=== PATIENT | female | born 1965 | race Caucasian/White ===

== ENCOUNTER 2016-11-16 11:09 | Outpatient (CLI) | payer MEDICAID | END 2016-11-16 11:10 | disposition home or self-care (01) | DX: M17.12 Unilateral primary osteoarthritis, left knee (principal) ==

== ENCOUNTER 2017-06-09 08:32 | Outpatient (CLI) | payer MEDICAID ==
--- NOTE | 2017-06-09 11:36 | Ultrasound Report ---
PELVIC ULTRASOUND: 06/09/2017 CLINICAL INDICATION: Pelvic pain. TECHNIQUE: Transabdominal pelvic ultrasound performed for global evaluation. Transvaginal pelvic ul trasound performed for detailed evaluation. Real-time scanning performed and static images obtained. FINDINGS: The uterus is anteverted, measuring 12.8 x 8.5 x 7.4 cm. The endometrium measures 10 mm. An IUD is noted in the endometrial canal. Multiple leiomyomas are present. The largest, in the ant erior myometrium, measures 4.3 x 3.8 x 3.6 cm. A left lateral leiomyoma measures 4.6 x 3.7 x 3.1 cm, and a superior leiomyoma measures 2.9 x 2.6 x 2.4 cm. The right ovary measures 3.3 x 2.1 x 1.9 cm, and demonstrates a 1.4 cm follicle. The left ovary korina ures 3.3 x 3.2 x 4.1 cm, and contains a 2.4 x 2.3 x 3.2 cm follicle. No free fluid is present. IMPRESSION: IUD IN THE ENDOMETRIAL CANAL. MULTIPLE LEIOMYOMAS. BILATERAL OVARIAN FOLLICLES. JOB #: [id number] EXT JOB #:[id number]
== END 2017-06-09 08:33 | disposition home or self-care (01) ==
LOC: DI 08:32
PROVIDERS: ATTEND Nurse Practitioner Family
DX: D25.9 Leiomyoma of uterus, unspecified (principal); Z97.5 Presence of (intrauterine) contraceptive device
CPT/HCPCS: 76830; 76856

== ENCOUNTER 2017-08-02 08:00 | Outpatient (CLI) | payer MEDICAID | END 2017-08-02 08:01 | disposition home or self-care (01) | LOC: LAB.R 08:00 | PROVIDERS: ATTEND Obstetrics & Gynecology | DX: Z12.4 Encounter for screening for malignant neoplasm of cervix (principal) | CPT/HCPCS: 87491; 87591 ==

== ENCOUNTER 2017-08-20 08:55 | Outpatient (CLI) | payer MEDICAID ==
--- NOTE | 2017-08-20 17:05 | MRI Report ---
EXAM: MRI PELVIS WITHOUT CONTRAST EXAM DATE: 08/20/2017 10:00 AM. CLINICAL HISTORY: Low back pain radiating into the lower extremities. COMPARISON: CT 11/04/2015. TECHNIQUE: Multiplanar, multisequence T1-weighted and fluid-sensitive sequences of the pelvis without contrast. Other: None. FINDINGS: Bones and articular surfaces: Mild cartilage thinning at the superior aspect of the hip joints. Subch ondral cyst formation at the anterosuperior aspect of the left hip acetabulum. No hip joint effusions . Pubic symphysis unremarkable. Sacroiliac joints appear symmetric and within normal limits. No evide nce of acute fracture or stress reaction. No evidence of femoral head AVN. Small amount of reactive m arrow edema at the left ischial tuberosity. Musculotendinous structures: Mild thickening and edema at the hamstrings origin. No significant muscl e atrophy or fatty replacement. Miscellaneous: Cyst in the posterior left pelvis presumably related to the left ovary measuring 4.0 x 3.0 x 4.5 cm. Multiple myometrial masses consistent with multiple uterine fibroids, the largest righ t intramural fibroid measuring up to 4 cm in diameter. Numerous additional fibroids measure from less than 1 cm to 3.3 cm diameter. No significant pelvic free fluid. IMPRESSION: 1. Enlarged fibroid uterus. 2. Mild left, greater than right, hip osteoarthritis. 3. Posterior left pelvic cystic structure most likely related to the left adnexa measuring 4.0 x 3.0 x 4.5 cm. Consider correlation with pelvic ultrasound. [facility] MUSCULOSKELETAL RADIOLOGY SECTION Referring Provider Line: [phone] SITE ID: [id number]
--- NOTE | 2017-08-20 17:05 | MRI Report ---
EXAM: MRI LUMBAR SPINE WITHOUT CONTRAST EXAM DATE: 08/20/2017 09:37 AM. CLINICAL HISTORY: Low back pain radiating intermittently into the lower extremities. COMPARISON: Abdominopelvic CT 11/04/2015. TECHNIQUE: Multiplanar, multisequence T1-weighted and fluid-sensitive sequences of the lumbar spine f rom T12 to S1 without contrast. Other: None. FINDINGS: Spinal Cord: The conus terminates at the upper L2 level. Conus medullaris is unremarkable. Tiny lipom a within the filum terminale. Alignment: Normal alignment. No spondylolisthesis. Bone Marrow: Five [id number] lumbar vertebral bodies are assumed. No fracture. No destructive prakash ne lesions. Diskogenic endplate edema at L3-L4. Some patchy areas of increased T2 marrow signal at th e left-sided L5 and S1 pedicles. Disk Levels/Facets: T12-L1: Unremarkable. L1-L2: Unremarkable. L2-L3: Mild disk dehydration. Mild degenerative facet arthropathy. No significant stenosis. Slight an nular disk bulge with tiny left foraminal annular fissure. L3-L4: Disk height loss and dehydration. Annular disk bulge. Small right paracentral inferior disk ex trusion and annular fissure. Mild degenerative facet arthropathy. Mild effacement of the thecal sac. Mild right, greater than left, foraminal stenosis. L4-L5: Mild disk dehydration. Moderate to severe degenerative facet arthropathy with moderate bilater al facet joint effusions and ligamentum flavum buckling. Mild central canal stenosis. Mild left, grea ter than right, foraminal stenosis. L5-S1: Moderate degenerative facet arthropathy. Slight annular disk bulge. Moderate left and mild rig ht foraminal stenosis. Musculature: Normal. No edema or fatty atrophy. Other: The partially visualized retroperitoneum is unremarkable. IMPRESSION: 1. L4-L5 moderate to severe bilateral degenerative facet arthropathy with moderate facet joint effusi ons 2. L3-L4 mild right, greater than left, foraminal stenosis. 3. L4-L5 mild central canal stenosis. Mild left, greater than right, foraminal stenosis. 4. L5-S1 moderate left and mild right foraminal stenosis. Comment: The following findings are so common in adults without low back pain that while we report th eir presence, they must be interpreted with caution and in the context of the clinical situation. (Re dillon Ruby et al, Spine 2001) Prevalence of findings in patients without low back pain: Disk degeneration (any evidence): 92% Disk desiccation/T2 signal loss: 83% Disk height loss: 56% Disk bulge: 64% Disk protrusion: 32% Annular tear/high intensity zone: 38% [facility] Referring Provider Line: [phone] SITE ID: [id number]
== END 2017-08-20 08:56 | disposition home or self-care (01) ==
LOC: DI 08:55
PROVIDERS: ATTEND Obstetrics & Gynecology
DX: D25.1 Intramural leiomyoma of uterus (principal); D25.9 Leiomyoma of uterus, unspecified; N94.89 Other specified conditions associated with female genital organs and menstrual cycle
CPT/HCPCS: 72148; 72195

== ENCOUNTER 2019-04-06 23:38 | Outpatient (CLI) | payer MEDICAID | END 2019-04-06 23:39 | disposition critical access hospital (66) | LOC: EMS 23:38 | PROVIDERS: ATTEND Surgery | DX: R25.2 Cramp and spasm (principal); R10.9 Unspecified abdominal pain; R42 Dizziness and giddiness | CPT/HCPCS: A0425; A0427; A0999 ==

== ENCOUNTER 2019-04-07 00:03 | Emergency (ER) | payer MEDICAID ==
--- NOTE | 2019-04-07 00:14 | ED Physician Documentation ---
History of Present Illness - Stated complaint Stated Complaint: LEG CRAMPS - Chief complaint Chief Complaint: Ext Problem - Additonal information Additional information: This is a 53-year-old female history of hypertension who presents by ambulance due to a leg cramp and concern for possible DVT. Patient states that she woke up in the middle the night after having 1 genin tonic in the evening, and she had a severe cramping of her thigh and calf. This lasted a few minutes, EMS was called. Her pain completely resolved without intervention, and she no longer has any sensation of cramping. She states that she wanted to come into the ospital get checked for a DVT, though she has never had a DVT and again, her pain is now completely resolved. She denies any recent surgery or immobilization. She is not on any hormonal medication. She has not noticed any redness or swelling in the leg. No shortness of breath or chest pain. Review of Systems Constitutional: denies: Fever Cardiac: denies: Chest pain / pressure Respiratory: denies: Dyspnea GI: denies: Abdominal Pain : denies: Dysuria Musculoskeletal: reports: Extremity pain Neurologic: denies: Generalized weakness PD PAST MEDICAL HISTORY - Past Medical History Cardiovascular: Hypertension Respiratory: None Endocrine/Autoimmune: None GI: None SENIOR ACCOUNTING ASSOCIATE: None : None HEENT: None Psych: Depression, Anxiety Musculoskeletal: None Derm: Rosacea - Past Surgical History Past Surgical History: No /SENIOR ACCOUNTING ASSOCIATE: Dilation and currettage - Present Medications Home Medications: Ambulatory Orders Medication Instructions Recorded Confirmed Alprazolam [Xanax] 1 mg PO DAILY 11/01/15 11/01/15 RX: Lisinopril 1 mg PO DAILY 11/01/15 11/01/15 RX: Propranolol [Inderal] 1 mg PO DAILY 11/01/15 11/01/15 RX: traZODone [Desyrel] 1 mg PO DAILY 11/01/15 11/01/15 Venlafaxine ER [Effexor ER] 1 mg PO DAILY 11/01/15 11/01/15 - Allergies Allergies/Adverse Reactions: Allergies Allergy/AdvReac Type Severity Reaction Status Date / Time No Known Drug Allergies Allergy Verified 04/07/19 00:11 - Social History Does the pt smoke?: Yes Smoking Status: Current some day smoker Does the pt drink ETOH?: Yes Does the pt have substance abuse?: No - Immunizations Immunizations are current?: Yes - POLST Patient has POLST: No PD ED PE NORMAL - Vitals Vital signs reviewed: Yes - General General: Alert and oriented X 3, No acute distress - HEENT HEENT: PERRL - Cardiac Cardiac: RRR, No murmur - Respiratory Respiratory: Clear bilaterally - Abdomen Abdomen: Soft, Non tender, Non distended - Derm Derm: Warm and dry - Extremities Extremities: No deformity, No tenderness to palpate, Normal ROM s pain, No edema, No calf tenderness / cord - Neuro Neuro: Alert and oriented X 3 - Psych Psych: Normal mood, Normal affect Results - Vitals Vitals: Vital Signs - 24 hr 04/07/19 04/07/19 04/07/19 00:05 00:23 02:31 Temperature 36.8 C Heart Rate 80 83 64 Respiratory 16 18 16 Rate Blood Pressure 122/65 122/65 110/64 O2 Saturation 97 96 97 Oxygen O2 Source Room air - Labs Labs: Laboratory Tests 04/07/19 01:05 Sodium 138 Potassium 3.8 Chloride 102 Carbon Dioxide 24 Anion Gap 12.0 BUN 14 Creatinine 0.6 Estimated GFR (MDRD) 105 Glucose 121 H Calcium 9.4 - Rads (name of study) Duplex RLE Radiology: Final report received (No DVT) PD MEDICAL DECISION MAKING - ED course Complexity details: considered differential (Muscle cramp, electrolyte abnormality, muscle strain, DVT) ED course: Pt presents with a now resolved leg cramp. She no longer has any symptoms and is very well appearing and her limb is normal in appearance. BMP drawn to check for electrolyte abnormality as a potential cause of cramping and it was normal. DVT study negative. I shared the result with the patient who continues to be asymptomatic. PCP follow up and return precautions discussed and patient was discharged home. Departure - Departure Disposition: 01 Home, Self Care Clinical Impression: Pain in extremity Condition: Good Follow-Up: Chayo Pederson ARNP [Primary Care Provider] - Comments: You were seen today for cramping in your leg. We do not see signs of blood clot. Your electrolytes appear normal. Please stay hydrated, and follow-up with your primary care provider. If you develop new or worsening symptoms you may return to the emergency department. Discharge Date/Time: 04/07/19 02:47
[2019-04-07 01:18] LABS: CALCIUM 9.4 mg/dL (8.5-10.3); CREATININE 0.6 mg/dL (0.4-1.0)
--- NOTE | 2019-04-07 02:14 | Ultrasound Report ---
Reason: R leg pain Procedure Date: 04/07/2019 Accession Number: [id number] / [id number] Procedure: US - Duplex Ext Veins Right CPT Code: FULL RESULT: EXAM: RIGHT LOWER EXTREMITY VENOUS ULTRASOUND EXAM DATE: 04/07/2019 01:06 AM. CLINICAL HISTORY: Right-sided leg pain. COMPARISON: None. TECHNIQUE: Real-time sonographic vascular imaging was performed by the bobbin inspector through the lower extremity utilizing both color-flow and Doppler spectral analysis. Multiple vaccine customer representative static images were saved for review. FINDINGS: Common Femoral Vein (CFV): Normal. CFV-GSV Junction: Normal. Profunda Femoral Vein (PFV): Normal. Femoral Vein (FV) Prox: Normal. Femoral Vein (FV) Mid: Normal. Femoral Vein (FV) Dist: Normal. Popliteal Vein: Normal. Calf veins: Calf veins are suboptimally visualized. Other: None. IMPRESSION: No evidence for deep venous thrombosis. [facility]
[2019-04-07 02:32] VITALS: BP 110/64
== END 2019-04-07 02:47 | disposition home or self-care (01) ==
LOC: ED 00:03
DX: M79.651 Pain in right thigh (principal); M79.661 Pain in right lower leg; I10 Essential (primary) hypertension; F17.200 Nicotine dependence, unspecified, uncomplicated
CPT/HCPCS: 36415; 80048; 99282; 99284

== ENCOUNTER 2019-05-10 09:50 | Outpatient (CLI) | payer MEDICAID ==
--- NOTE | 2019-05-11 10:50 | XRAY Report ---
Reason: OSTEOARTHRITIS LEFT HIP Procedure Date: 05/10/2019 Accession Number: [id number] / [id number] Procedure: XR - Hip w/Pelvis 2-3V LT CPT Code: FULL RESULT: EXAM: LEFT HIP RADIOGRAPHY EXAM DATE: 05/10/2019 10:37 AM. CLINICAL HISTORY: Chronic left hip pain, worse after a fall 3 months ago, with fall again today. COMPARISON: None. TECHNIQUE: 2 views including AP pelvis. FINDINGS: Bones: Normal. No fractures or bone lesion. Joints: Normal. No dislocation. The hip joint space is preserved. Soft Tissues: IUD noted. IMPRESSION: Normal left hip radiography. [facility]
--- NOTE | 2019-05-11 11:15 | XRAY Report ---
Reason: SHOULDER JOINT PAIN, RIGHT Procedure Date: 05/10/2019 Accession Number: [id number] / [id number] Procedure: XR - Shoulder 3 View RT CPT Code: FULL RESULT: EXAM: RIGHT SHOULDER RADIOGRAPHY EXAM DATE: 05/10/2019 10:35 AM. CLINICAL HISTORY: Fall on outstretched hand. Shoulder pain. COMPARISON: None. TECHNIQUE: 4 views. FINDINGS: Bones: Normal. No fracture or bone lesion. Joints: The glenohumeral and acromioclavicular joints are normal. Soft tissues: The visualized hemithorax is unremarkable. No soft tissue calcification. IMPRESSION: Normal shoulder radiography. [facility]
== END 2019-05-10 09:51 | disposition home or self-care (01) ==
LOC: DI 09:50
PROVIDERS: ATTEND Internal Medicine
DX: M25.511 Pain in right shoulder (principal); M25.552 Pain in left hip

== ENCOUNTER 2019-09-20 08:44 | Outpatient (CLI) | payer MEDICAID ==
--- NOTE | 2019-09-20 11:00 | MRI Report ---
Reason: LUMBAR SPINAL STENOSIS, LT LOW BACK PAIN Procedure Date: 09/20/2019 Accession Number: [id number] / [id number] Procedure: MRI - Lumbar Spine W/O CPT Code: Final Report FULL RESULT: EXAM: MRI LUMBAR SPINE WITHOUT CONTRAST EXAM DATE: 09/20/2019 09:27 AM. CLINICAL HISTORY: Lumbar spinal stenosis, lt low back pain. COMPARISON: LUMBAR SPINE W/O 08/20/2017 9:05 AM. TECHNIQUE: Multiplanar, multisequence T1-weighted and fluid-sensitive sequences of the lumbar spine from T12 to S1 without contrast. Other: None. FINDINGS: The distal tip of the conus medullaris is present at the level of the L2 vertebral body. No abnormal signal is seen in the conus medullaris. At least moderate loss of disk space height and endplate irregularity are present at L3-L4. The degree of disk space height loss has increased. Anterior disk protrusion and osteophyte formation at this level have increased. Facet/ligamentum flavum hypertrophy is seen throughout the lumbar spine. This is greatest at L4-L5 where it is severe bilaterally. A focus of STIR hyperintense signal on the right is present. There is some subtle T1 shortening in this region suggesting this reflects an intraosseous hemangioma. No suspicious marrow replacement is present in the lumbar vertebral bodies. T10-T11 and T11-T12: Minimal posterior disk protrusion is seen without central canal stenosis on the sagittal views. At T11-T12 on the left there is a foraminal component which results in left foraminal stenosis. This level is not included on the comparison MRI. T12-L2: No posterior disk protrusion. No central canal or foraminal stenosis. L2-L3: Minimal shallow posterior lateral and proximal foraminal protrusion is seen. This is stable. No stenosis. L3-L4: A minimal posterior disk protrusion is seen. There is a shallow posterior lateral proximal foraminal protrusion bilaterally greater on the right relative to the left. There is mild right foraminal stenosis. The foraminal component on the right has increased with the foraminal stenosis being new. L4-L5: A minimal posterior lateral and proximal foraminal protrusion is seen bilaterally. Mild left foraminal stenosis is stable. Superior lateral recess narrowing bilaterally is stable. No central canal stenosis. L5-S1: Moderate left and mild right proximal foraminal stenosis is present. This has increased on the left. There has been an increase in the amount of fluid in the facet joint bilaterally at this level. Medial to the left facet joint is a multiloculated 9 mm T2 hyperintensity which is new. There is mass effect on the lateral left thecal sac. This results in superior lateral recess stenosis on the left. IMPRESSION: 1. Progression of degenerative disk disease at L3-L4 particularly along the right foraminal margin of the disk with new right foraminal stenosis. Disk space height loss at this level has increased. 2. There has been an increase in facet arthrosis at L5-S1 with fluid having developed in the facet joint bilaterally at this level. There is bilateral foraminal stenosis which has increased on the left. In addition, there has been development of a synovial cyst projecting medial to the left facet joint with superior left lateral recess stenosis present on the current study. 3. MRI lumbar spine is otherwise unchanged. 4. Again seen is left foraminal stenosis at L4-L5. 5. There is a foraminal protrusion on the left at T11-T12 with left foraminal stenosis. This was not included on the comparison study. Comment: The following findings are so common in adults without low back pain that while we report their presence, they must be interpreted with caution and in the context of the clinical situation. (Reference Allvik et al, Spine 2001) Prevalence of findings in patients without low back pain: Disk degeneration (any evidence): 92% Disk desiccation/T2 signal loss: 83% Disk height loss: 56% Disk bulge: 64% Disk protrusion: 32% Annular tear/high intensity zone: 38% [facility]
== END 2019-09-20 08:45 | disposition home or self-care (01) ==
LOC: DI 08:44
PROVIDERS: ATTEND Physical Medicine & Rehabilitation
DX: M47.816 Spondylosis without myelopathy or radiculopathy, lumbar region (principal); M51.36 Other intervertebral disc degeneration, lumbar region; M51.26 Other intervertebral disc displacement, lumbar region; M51.24 Other intervertebral disc displacement, thoracic region; M47.817 Spondylosis without myelopathy or radiculopathy, lumbosacral region; M48.07 Spinal stenosis, lumbosacral region; M48.061 Spinal stenosis, lumbar region without neurogenic claudication
CPT/HCPCS: 72148

== ENCOUNTER 2020-06-12 09:30 | Outpatient (CLI) | payer MEDICAID | END 2020-06-12 09:31 | disposition home or self-care (01) | LOC: COV 09:30 | PROVIDERS: ATTEND Family Medicine | DX: J02.9 Acute pharyngitis, unspecified (principal); R09.81 Nasal congestion; Z20.828 Contact with and (suspected) exposure to other viral communicable diseases ==

== ENCOUNTER 2020-08-25 21:46 | Outpatient (CLI) | payer MEDICAID | END 2020-08-25 21:47 | disposition home or self-care (01) | LOC: COV 21:46 | PROVIDERS: ATTEND Specialist | DX: Z01.812 Encounter for preprocedural laboratory examination (principal); Z20.822 Contact with and (suspected) exposure to COVID-19 ==

== ENCOUNTER 2020-12-26 13:45 | Outpatient (CLI) | payer MEDICAID | END 2020-12-26 13:46 | disposition home or self-care (01) | LOC: COV 13:45 | PROVIDERS: ATTEND Family Medicine | DX: Z20.822 Contact with and (suspected) exposure to COVID-19 (principal) ==

== ENCOUNTER 2022-01-11 11:02 | Outpatient (CLI) | payer MEDICAID ==
--- NOTE | 2022-01-12 13:49 | Mammography Report ---
BILATERAL DIGITAL SCREENING MAMMOGRAM 3D/2D WITH EXAGGERATED CC: 01/11/2022 CLINICAL: Routine screening. Baseline exam. No prior exams were available for comparison. The tissue of both breasts is predominantly fatty. There is an oval focal asymmetry with grouped fine calcifications in the right breast at 12 o'clock p osterior depth. There also is an oval focal asymmetry with a microlobulated margin in the right breast at 12 o'clock anterior depth. There is an oval asymmetry in the left breast at 12 o'clock middle depth. There also is an oval asymmetry with grouped fine calcifications in the left breast anterior depth ce ntral to the nipple seen on the craniocaudal view only. No other significant masses or calcifications are seen in either breast. IMPRESSION: INCOMPLETE: NEEDS ADDITIONAL IMAGING EVALUATION The oval focal asymmetry in the right breast at 12 o'clock posterior depth is indeterminate. Additio nal views with possible ultrasound are recommended. The oval focal asymmetry in the right breast at 12 o'clock anterior depth is indeterminate. Addition al views with possible ultrasound are recommended. The oval asymmetry in the left breast at 12 o'clock middle depth is indeterminate. Additional views with possible ultrasound are recommended. The oval asymmetry in the left breast anterior depth central to the nipple seen on the craniocaudal v iew only is indeterminate. Additional views with possible ultrasound are recommended. This exam was interpreted at Station ID: [id number]. NOTE: For mammograms, a report in lay terms will be sent to the patient. Approximately 15% of breast malignancies will not be visualized mammographically. In the management of a palpable breast mass, a negative mammogram must not discourage biopsy of a clinically suspicious lesion. Electronically Signed By: Vonnie waller/[email or web address]:01/11/2022 14:22:37 ACR BI-RADS Category 0: Incomplete 3340F PARENCHYMAL PATTERN: (F) - The breast(s) demonstrate(s) diffuse fatty replacement. BI-RADS CATEGORY: (0) - 0 Mammo and [place] [id number] Immediate follow-up LATERALITY: (B)
== END 2022-01-11 11:03 | disposition home or self-care (01) ==
LOC: DI.S 11:02
PROVIDERS: ATTEND Nurse Practitioner Family
DX: Z12.31 Encounter for screening mammogram for malignant neoplasm of breast (principal); R92.8 Other abnormal and inconclusive findings on diagnostic imaging of breast

== ENCOUNTER 2022-02-08 10:21 | Outpatient (CLI) | payer MEDICAID ==
[2022-02-08 15:11] LABS: ALBUMIN 4.3 g/dL (3.2-5.5); ALBUMIN/GLOBULIN RATIO 1.2 (1.0-2.2); ALKALINE PHOSPHATASE 91 IU/L (42-121); ALT ALANINE AMINOTRANSFERASE 39 IU/L (10-60); AST ASPARTATE AMINOTRANSFERASE 24 IU/L (10-42); BILIRUBIN,TOTAL 0.6 mg/dL (0.2-1.0); BUN - BLOOD UREA NITROGEN 15 mg/dL (6-20); CALCIUM 9.3 mg/dL (8.5-10.3); CARBON DIOXIDE - CO2 28 mmol/L (21-32); CHLORIDE 100 mmol/L (101-111); CHOL/HDL RATIO 4.3 (<4.4); CHOLESTEROL 223 mg/dL; CREATININE 0.8 mg/dL (0.4-1.0); GFR - MDRD 75 (>89); GLUCOSE 179 mg/dL (70-100); HDL CHOLESTEROL 52 mg/dL; LDL CHOLESTEROL,CALCULATED 137 mg/dL; LDL/HDL RATIO 2.6 (<4.4); POTASSIUM 4.1 mmol/L (3.5-5.0); SODIUM 138 mmol/L (135-145); TOTAL PROTEIN 7.8 g/dL (6.7-8.2); TRIGLYCERIDES 168 mg/dL; VLDL CHOLESTEROL 34 mg/dL
[2022-02-09 06:35] LABS: HCV AB <0.1 s/co ratio (0.0-0.9)
== END 2022-02-08 10:22 | disposition home or self-care (01) ==
LOC: LAB.S 10:21
PROVIDERS: ATTEND Nurse Practitioner Family
DX: I10 Essential (primary) hypertension (principal); Z11.59 Encounter for screening for other viral diseases; Z13.220 Encounter for screening for lipoid disorders
CPT/HCPCS: 36415; 80053; 80061; 83721; 86803

== ENCOUNTER 2022-07-11 23:24 | Outpatient (CLI) | payer MEDICAID | END 2022-07-11 23:25 | disposition critical access hospital (66) | LOC: EMS 23:24 | DX: M54.50 Low back pain, unspecified (principal) | CPT/HCPCS: A0425; A0427; A0999 ==

== ENCOUNTER 2022-07-11 23:50 | Emergency (ER) | payer MEDICAID ==
--- NOTE | 2022-07-12 03:02 | ED Physician Documentation ---
PD HPI BACK PAIN - Stated complaint Stated Complaint: BACK PX - Chief complaint Chief Complaint: Back Pain - History obtained from History obtained from: Patient, EMS - History of Present Illness Timing - details: Gradual onset Location: Lower, Left Quality: Pain Associated symptoms: Numbness. No: Fever, Weakness, Incontinent of urine, Unable to urinate Improves with: Rest Worsened by: Movement - Additional information Additional information: BIBA for left lower back pain. Patient states "I'm having severe sciatica". She has had these symptoms before and recently evaluated by her primary care provider for this. She was prescribed oxycodone/acetaminophen last month (05/25) but did not need to take any until past 4 days and she has now run out of them. She also was prescribed cyclobenzaprine 07/10 but this has not provided symptom relief. She says she has had improvement with steroids in the past with her back pain and typically has a taper over 5-7 days. She says she had recent bilateral hip xrays at another facility and, per patient, no remarkable findings on these xrays. Had L/S MRI 2019 which showed DDD L3-L4, foraminal stenosis. Given 100micrograms IV fentanyl by EMS with improvement from 05/01 to 11/29 Review of Systems Constitutional: denies: Fever, Chills, Sweats Cardiac: reports: Reviewed and negative Respiratory: reports: Reviewed and negative GI: reports: Reviewed and negative : denies: Dysuria, Frequency, Unable to Void, Incontinent Musculoskeletal: reports: Back pain Neurologic: reports: Numbness (mild LLE paresthesias). denies: Generalized weakness, Focal weakness PD PAST MEDICAL HISTORY - Past Medical History Past Medical History: Yes Cardiovascular: Hypertension Respiratory: None Endocrine/Autoimmune: None GI: None LICENSED OPTICIAN: None : None HEENT: None Psych: Depression, Anxiety Musculoskeletal: None Derm: Rosacea - Past Surgical History Past Surgical History: No General: Appendectomy /LICENSED OPTICIAN: Dilation and currettage - Present Medications Home Medications: Ambulatory Orders Medication Instructions Recorded Confirmed Alprazolam [Xanax] 1 mg PO DAILY 11/01/15 11/01/15 Propranolol [Inderal] 1 mg PO DAILY 11/01/15 11/01/15 Venlafaxine ER [Effexor ER] 1 mg PO DAILY 11/01/15 11/01/15 lisinopriL [Lisinopril] 1 mg PO DAILY 11/01/15 11/01/15 traZODone [Desyrel] 1 mg PO DAILY 11/01/15 11/01/15 HYDROmorphone [Dilaudid] 2 mg PO Q4H PRN #20 tablet 07/12/22 diazePAM [Valium] 5 mg PO TID PRN #15 tablet 07/12/22 predniSONE [Deltasone] 10 mg PO ONCE #26 tablet 07/12/22 - Allergies Allergies/Adverse Reactions: Allergies Allergy/AdvReac Type Severity Reaction Status Date / Time No Known Drug Allergies Allergy Verified 07/11/22 23:57 - Social History Does the pt smoke?: Yes Smoking Status: Current every day smoker Does the pt drink ETOH?: Yes Does the pt have substance abuse?: No - Immunizations Immunizations are current?: Yes - POLST Patient has POLST: No PD ED PE NORMAL - Vitals Vital signs reviewed: Yes - General General: Alert and oriented X 3, No acute distress, Well developed/nourished - Cardiac Cardiac: RRR, No murmur - Respiratory Respiratory: No respiratory distress, Clear bilaterally - Abdomen Abdomen: Soft, Non tender, Non distended - Back Back: No CVA TTP, No spinal TTP - Derm Derm: Normal color, Warm and dry, No rash - Extremities Extremities: No edema - Neuro Neuro: No motor deficit, No sensory deficit Results - Vitals Vitals: Vital Signs - 24 hr 07/11/22 07/12/22 07/12/22 23:57 02:03 04:00 Temperature 36.5 C Heart Rate 75 72 71 Respiratory 18 18 16 Rate Blood Pressure 150/90 H 133/80 H 138/78 H O2 Saturation 94 95 95 07/12/22 07/12/22 06:00 06:34 Temperature 36.4 C L 36.5 C Heart Rate 70 68 Respiratory 16 16 Rate Blood Pressure 133/72 H 132/71 H O2 Saturation 95 96 Oxygen O2 Source Room air - Rads (name of study) L/S xrays Radiology: Prelim report reviewed, See rad report PD MEDICAL DECISION MAKING - ED course Complexity details: reviewed old records, reviewed results, re-evaluated patient, considered differential, d/w patient ED course: patient reported improvement with IV fentanyl by EMS en route and further improved with IV dilaudid in ED, 1mg x 2 doses. She is given 10mg IV decadron as well, having had improvement in the past with steroids for her back pain. Lumbar xrays show degenerative changes L3-L4, osteophytes, but normal vertebral body heights. These findings were present on the previous MRI. She was able to stand/bear weight when xrays were done. Prior to discharge she is AAOX3 and in NAD, reports good symptom relief. She has an appointment with her oncologist later today and is comfortable with d/c at this time so that she can get to that appointment (vocalizes understanding that she needs to be driven to the appointment, as the medications given preclude driving). We discussed options for medications for symptom control. She says she had decreasing relief of symptoms with the percocet that had been prescribed, although she was only taking one tablet per dose. I offered to provide another prescription for this and that she can take 1-2 tablets per dose but she is concerned this won't provide adequate relief. I provided a prescription for PO hydromorphone instead. I also provided prescriptions for diazepam (for skeletal muscle relaxant property) as well as a prednisone taper. Departure - Departure Disposition: 01 Home, Self Care Clinical Impression: Sciatica Qualifiers: Laterality: right Qualified Code(s): M54.31 - Sciatica, right side Condition: Good Instructions: ED Sciatica Prescriptions: predniSONE [Deltasone] 10 mg PO ONCE #26 tablet HYDROmorphone [Dilaudid] 2 mg PO Q4H PRN #20 tablet PRN Reason: Pain diazePAM [Valium] 5 mg PO TID PRN #15 tablet PRN Reason: Spasms Discharge Date/Time: 07/12/22 07:25
[2022-07-12] MEDS: HYDROmorphone 1 MG/ML CARPUJECT IVP STA ×2 (03:32→06:33)
[2022-07-12] MEDS: DEXAMETHASONE 10 MG/ML VIAL IVP STA (03:32)
[2022-07-12 06:36] VITALS: BP 132/71
--- NOTE | 2022-07-12 08:02 | XRAY Report ---
PROCEDURE: Lumbar Spine 2 View INDICATIONS: low back pain TECHNIQUE: 3 views of the lumbar spine were acquired. COMPARISON: Lumbar spine MRI dated 09/20/2019 FINDINGS: Bones: 5 [id number]-[id number] vertebrae are present. There is normal bony alignment. No vertebral body compression fractures. No suspicious bony lesions. Degenerative disc space loss at L3-L4. Lower lum bar facet arthropathy. Soft tissues: Overlying bowel gas pattern is normal. No suspicious soft tissue calcifications. IMPRESSION: Degenerative change. No acute compression fracture. Comment: Lumbar spine MRI may be helpful. Findings are concordant with preliminary interpretation provided by [facility]. Reviewed by: David Hairston MD on 07/12/2022 8:00 AM PST Approved by: David Hairston MD on 07/12/2022 8:00 AM PST Station ID: [id number]
== END 2022-07-12 07:25 | disposition home or self-care (01) ==
LOC: EDUNIT# → ED 23:50
DX: M54.31 Sciatica, right side (principal); F17.200 Nicotine dependence, unspecified, uncomplicated
CPT/HCPCS: 96374; 96375; 96376; 99284

== ENCOUNTER 2022-07-12 07:26 | Emergency (ER) | payer MEDICAID ==
[2022-07-12 08:08] VITALS: BP 175/90
== END 2022-07-12 09:03 | disposition left against medical advice (07) ==
LOC: ED 07:26
DX: Z53.21 Procedure and treatment not carried out due to patient leaving prior to being seen by health care provider (principal)

== ENCOUNTER 2022-07-12 09:26 | Emergency (ER) | payer MEDICAID ==
[2022-07-12] MEDS ORDERED: HYDROmorphone 1 MG/ML CARPUJECT IM STA (12:41)
[2022-07-12] MEDS ORDERED: KETOROLAC 30 MG/ML VIAL IM STA (12:41)
--- NOTE | 2022-07-12 12:44 | ED Physician Documentation ---
History of Present Illness - Stated complaint Stated Complaint: BACK PX/LEG PX - Chief complaint Chief Complaint: Trauma Ext - History obtained from History obtained from: Patient - History of Present Illness Timing: Chronic Pain level max: 9 Pain level now: 7 - Additonal information Additional information: Patient is a 56-year-old female who was brought into the emergency department today complaining of low back pain. She was seen here last night and diagnosed with sciatica. She was given Dilaudid with good pain relief. She was prescribed Dilaudid and Valium for home. She states that as she was being wheeled out of the emergency department in a wheelchair her left leg was struck against the door. She states that this caused an increase in her pain again. Patient is checked back in for pain control. She is requesting a dose of Dilaudid. No new numbness or tingling. No loss of bowel or bladder control. Patient states that she has chronic low back pain. She has seen a pediatric dental hygienist. She is getting ready for surgery at the [facility] for breast [facility]. Worse with movement, better with rest. Review of Systems Ten Systems: 10 systems reviewed and negative Constitutional: denies: Fever, Chills Nose: denies: Rhinorrhea / runny nose Throat: denies: Sore throat Respiratory: denies: Dyspnea, Cough Skin: denies: Rash Neurologic: denies: Focal weakness, Numbness, Confused PD PAST MEDICAL HISTORY - Past Medical History Cardiovascular: Hypertension Respiratory: None Endocrine/Autoimmune: None GI: None MODERN DANCER: None : None HEENT: None Psych: Depression, Anxiety Musculoskeletal: None Derm: Rosacea - Past Surgical History Past Surgical History: No General: Appendectomy /MODERN DANCER: Dilation and currettage - Present Medications Home Medications: Ambulatory Orders Medication Instructions Recorded Confirmed Alprazolam [Xanax] 1 mg PO DAILY 11/01/15 11/01/15 Propranolol [Inderal] 1 mg PO DAILY 11/01/15 11/01/15 Venlafaxine ER [Effexor ER] 1 mg PO DAILY 11/01/15 11/01/15 lisinopriL [Lisinopril] 1 mg PO DAILY 11/01/15 11/01/15 traZODone [Desyrel] 1 mg PO DAILY 11/01/15 11/01/15 HYDROmorphone [Dilaudid] 2 mg PO Q4H PRN #20 tablet 07/12/22 diazePAM [Valium] 5 mg PO TID PRN #15 tablet 07/12/22 predniSONE [Deltasone] 10 mg PO ONCE #26 tablet 07/12/22 - Allergies Allergies/Adverse Reactions: Allergies Allergy/AdvReac Type Severity Reaction Status Date / Time No Known Drug Allergies Allergy Verified 07/11/22 23:57 - Social History Does the pt smoke?: Yes Smoking Status: Current every day smoker Does the pt drink ETOH?: Yes Does the pt have substance abuse?: No - Immunizations Immunizations are current?: Yes - POLST Patient has POLST: No PD ED PE NORMAL - Vitals Vital signs reviewed: Yes - General General: Alert and oriented X 3, No acute distress - HEENT HEENT: PERRL, Moist mucous membranes - Neck Neck: Supple, no meningeal sign - Cardiac Cardiac: RRR, Strong equal pulses - Respiratory Respiratory: No respiratory distress, Clear bilaterally - Abdomen Abdomen: Soft, Non tender, Non distended - Back Back: No CVA TTP, No spinal TTP (No midline tenderness to palpation or percussion. No step-off or deformity.) - Derm Derm: Warm and dry - Extremities Extremities: No edema, No calf tenderness / cord, Other (No bruising or abrasions to the left leg. No tenderness over the knee, hip of the left leg.) - Neuro Neuro: Alert and oriented X 3, No motor deficit, No sensory deficit - Psych Psych: Normal mood, Normal affect Results - Vitals Vitals: Vital Signs - 24 hr 07/12/22 09:35 Temperature 36.7 C Heart Rate 86 Respiratory 18 Rate Blood Pressure 147/95 H O2 Saturation 98 Oxygen O2 Source Room air PD MEDICAL DECISION MAKING - ED course Complexity details: reviewed old records, considered differential (No cauda equina, no spinal epidural abscess, no fracture, no aortic dissection or evidence of aneursym rupture), d/w patient ED course: Pain well controlled with a dose of Dilaudid and Toradol here. She received prescriptions for pain medication for home. She has no indication for emergent MRI at this time. No new neurological deficits. Patient counseled regarding signs and symptoms for which I believe and urgent re-evaluation would be necessary. Patient with good understanding of and agreement to plan and is comfortable going home at this time This document was made in part using voice recognition software. While efforts are made to proofread this document, sound alike and grammatical errors may occur. Departure - Departure Disposition: 01 Home, Self Care Clinical Impression: Sciatica Qualifiers: Laterality: left Qualified Code(s): M54.32 - Sciatica, left side Condition: Good Instructions: ED Sciatica Follow-Up: your,doctor in 1 week [Other] Comments: Please follow-up with your doctor for further care. Your doctor will need to order a repeat MRI for your back as we discussed, this cannot be performed on the ER today. Please use the medications as previously prescribed. You were given a dose of Dilaudid and Toradol in the emergency department today.
[2022-07-12 13:02] VITALS: BP 152/91
== END 2022-07-12 13:06 | disposition home or self-care (01) ==
LOC: ED 09:26
DX: M54.32 Sciatica, left side (principal); F17.200 Nicotine dependence, unspecified, uncomplicated
CPT/HCPCS: 72100; 96374; 96375; 96376; 99281; 99282; 99283; 99284; J1170

== ENCOUNTER 2023-11-18 09:48 | Outpatient (CLI) | payer MEDICAID ==
[2023-11-18 17:01] LABS: ALBUMIN/GLOBULIN RATIO 1.6 (1.0-2.2); ALKALINE PHOSPHATASE 76 IU/L (42-121); ALT ALANINE AMINOTRANSFERASE 40 IU/L (10-60); AST ASPARTATE AMINOTRANSFERASE 35 IU/L (10-42); BILIRUBIN,TOTAL 0.5 mg/dL (0.2-1.0); BUN - BLOOD UREA NITROGEN 15 mg/dL (6-20); CALCIUM 9.6 mg/dL (8.5-10.3); CARBON DIOXIDE - CO2 29 mmol/L (21-32); CHLORIDE 104 mmol/L (101-111); CHOL/HDL RATIO 4.2 (<4.4); CHOLESTEROL 163 mg/dL; CREATININE 0.8 mg/dL (0.6-1.3); GFR - MDRD 74 (>89); GLUCOSE 109 mg/dL (74-104); HDL CHOLESTEROL 39 mg/dL; LDL CHOLESTEROL,CALCULATED 84 mg/dL; LDL/HDL RATIO 2.2 (<4.4); POTASSIUM 3.9 mmol/L (3.5-4.5); SODIUM 137 mmol/L (135-145); TOTAL PROTEIN 6.5 g/dL (6.4-8.9); TRIGLYCERIDES 201 mg/dL (48-352); VLDL CHOLESTEROL 40 mg/dL
[2023-11-18 17:16] LABS: CREATININE,URINE 283.6 mg/dL; MICROALBUM/CREATININE RATIO,UR 39.1 ug/mg (<30.0); MICROALBUMIN,URINE 11.1 mg/dL
[2023-11-18 18:01] LABS: ESTIMATED AVERAGE GLUCOSE 117 mg/dL (70-100); HEMOGLOBIN A1c% 5.7 % (4.27-6.07)
== END 2023-11-18 09:49 | disposition home or self-care (01) ==
LOC: LAB.S 09:48
PROVIDERS: ATTEND Nurse Practitioner Family
DX: E11.8 Type 2 diabetes mellitus with unspecified complications (principal); I10 Essential (primary) hypertension
CPT/HCPCS: 36415; 80053; 80061; 82043; 82570; 83036; 83721

== ENCOUNTER 2024-04-25 08:00 | Outpatient (CLI) | payer MEDICAID ==
--- NOTE | 2024-04-26 17:17 | XRAY Report ---
Hand 3+V LT HISTORY: 58 years of age, LEFT HAND PAIN TECHNIQUE: Hand 3+V LT COMPARISON: None. FINDINGS/IMPRESSION: Small ossification about the second distal interphalangeal joint, representing prior injury. Small sergey cency at the radial styloid, nonspecific and may be degenerative. Mild degenerative changes of the th ird distal interphalangeal joint. No acute fracture or dislocation. Ulnar negative variance. Reviewed by: Marge Soriano MD on 04/26/2024 5:16 PM PDT Approved by: Marge Soriano MD on 04/26/2024 5:16 PM PDT Station ID: [id number]
== END 2024-04-25 23:59 | disposition home or self-care (01) ==
LOC: DI.S 08:00
PROVIDERS: ATTEND Registered Nurse
DX: M19.042 Primary osteoarthritis, left hand (principal)